=== PATIENT | female | born 1950 | race Caucasian/White ===

== ENCOUNTER 2016-08-20 13:41 | Emergency (ER) | payer OTHER, MEDICARE ==
--- NOTE | ~2016-08-20 | CR20 ---
[facility] A Service of [facility] RADIOLOGY TEXT RESULTS PATIENT: EDITH SPAIN LOCATION: [place] : 54 UNIT #: [id number] AGE: [address]: Esme Feldman APRN SEX: F ORDER DR: [id number] [facility] [address] [place], [place] [address] [id number] E MR#: [id number] Acc #: [id number] NAME: EDITH SPAIN : 1950 SEX: F STUDY DATE/TIME: 08/20/2016 15:02 UNIT: CFTX ROOM: STUDY DESCRIPTION: CR Ankle Min 3 Views Lt Attending Physician: Esme Feldman A.P.R.N. Referring Physician: Primary Care Physician No Ordering Physician: Jerome Aaron M.D. Primary Care Physician: Primary Care Physician No MEDICAL IMAGING REPORT This report is preliminary unless electronic signature is present EXAM Three views of the left ankle. DATE 08/20/16 HISTORY Left ankle/foot pain, swelling/edema, greatest at the lateral aspect and top of the foot for the past 2 days after twisting on a rock. COMPARISON None. FINDINGS A 3-4 mm calcification is seen at the inferior margin of the lateral malleolus, which may represent a cortical avulsion of uncertain donor site. Soft tissue swelling is seen about the lateral margin of the ankle and at the dorsum of the ankle and midfoot. There is spurring at the dorsum of the midfoot, and there is a small plantar calcaneal spur. No joint dislocation is seen. No retained radiopaque foreign body is evident in the soft tissues. IMPRESSION 1. 3-4 mm calcification lies inferior to the lateral malleolus and may represent a cortical avulsion of uncertain donor site. Soft tissue swelling is seen in the same vicinity. 2. No joint dislocation. [facility] A Service of [facility] RADIOLOGY TEXT RESULTS PATIENT: EDITH SPAIN LOCATION: [facility] : 54 UNIT #: [id number] AGE: [address]: Esme Feldman APRN SEX: F ORDER DR: Dictated by... Marylou Mullins M.D. THIS IS AN ELECTRONICALLY VERIFIED REPORT Marylou Mullins M.D. at 08/21/2016 8:48 AM MARIAN/jayy TD: 08/20/2016 20:18 JOB #: [id number] MEDICAL IMAGING REPORT Page 1 of 1 COPY
--- NOTE | ~2016-08-20 | CR126 ---
[facility] A Service of [facility] RADIOLOGY TEXT RESULTS PATIENT: EDITH SPAIN LOCATION: [facility] : 54 UNIT #: [id number] AGE: [address]: Esme Feldman APRN SEX: F ORDER DR: [id number] [facility] [address] [place], [place] [address] [id number] E MR#: [id number] Acc #: [id number] NAME: EDITH SPAIN : 1950 SEX: F STUDY DATE/TIME: 08/20/2016 15:01 UNIT: [facility] ROOM: STUDY DESCRIPTION: CR Foot Complete Min 3 View Lt Attending Physician: Esme Feldman A.P.R.N. Referring Physician: Primary Care Physician Rubia Ordering Physician: Ed Doctor [id number] [facility] Primary Care Physician: Primary Care Physician No MEDICAL IMAGING REPORT This report is preliminary unless electronic signature is present EXAM 3 views left foot. DATE 08/20/2016 HISTORY 65-year-old female with diffuse left foot and ankle swelling/edema, greatest on the lateral aspect and on the top of the foot. Symptoms began 2 days ago after twisting on a rock. COMPARISON None FINDINGS No acute fracture or joint dislocation is seen. Soft tissue swelling is seen at the dorsum of the midfoot and adjacent to the ankle at its anterolateral margin. There is mild osteoarthritic change at the first tarsometatarsal junction. Small calcaneal spurs. Mild spurring at the dorsum of the midfoot. IMPRESSION 1. Left foot and ankle soft tissue swelling. 2. No acute osseous abnormality. 3. Mild degenerative change, greatest at the first tarsometatarsal junction, with small plantar calcaneal spur. Dictated by... Marylou Mullins M.D. THIS IS AN ELECTRONICALLY VERIFIED REPORT Marylou Mullins M.D. at 08/21/2016 8:48 AM [facility]/to [facility] A Service of [facility] RADIOLOGY TEXT RESULTS PATIENT: EDITH SPAIN LOCATION: [facility] : 54 UNIT #: [id number] AGE: [address]: Esme Feldman APRN SEX: F ORDER DR: TD: 08/20/2016 21:19 JOB #: [id number] MEDICAL IMAGING REPORT Page 1 of 1 COPY
== END 2016-08-20 16:25 | disposition home or self-care (01) ==
LOC: CFTX 13:41 → CED 13:41 → CFTX 16:08
DX: S93.402A Sprain of unspecified ligament of left ankle, initial encounter (principal); S93.602A Unspecified sprain of left foot, initial encounter; I10 Essential (primary) hypertension; F17.210 Nicotine dependence, cigarettes, uncomplicated; X50.1XXA Overexertion from prolonged static or awkward postures, initial encounter; Y92.814 Boat as the place of occurrence of the external cause
CPT/HCPCS: 29515; 73610; 73630; 99283